=== PATIENT | male | born 1960 | race Caucasian/White ===

== ENCOUNTER 2024-05-12 18:36 | Emergency (ER) | payer SELFPAY ==
[2024-05-12 19:04] VITALS: BP 139/71; PULSE 79; RESP 20; TEMP 36.6; O2SAT 96
--- NOTE | 2024-05-13 02:42 | PC.NURSE ---
pt called for vitals and no answer.
--- NOTE | 2024-05-13 03:47 | PC.NURSE ---
2nd call no answer
== END 2024-05-13 04:23 | disposition left against medical advice (07) ==
LOC: ANHED 05-13 04:02
DX: S69.91XA Unspecified injury of right wrist, hand and finger(s), initial encounter (principal)
CPT/HCPCS: 99199

== ENCOUNTER 2024-07-18 13:53 | Emergency (ER) | payer OTHER, SELFPAY ==
--- NOTE | ~2024-07-18 | CT_ITS ---
EXAMINATION: CTA chest PE protocol DATE: 07/18/2024 17:48 CDT INDICATION: Cough and positive, elevated d-dimer, shortness of breath and productive cough TECHNIQUE: Computed tomographic angiography (CTA) of the chest was performed with 100 mL Omnipaque-35 0 intravenous contrast. The dose-length product was 717.78 mGy-cm. Maximum intensity projection 3D-re constructions of the aorta and other arteries were constructed by the technologist on a separate work station. COMPARISON: None. FINDINGS: No filling defects are identified within the main or proximal pulmonary arteries. 7.4 mm nodule within the left upper lobe (axial series, image 60). 5 mm nodule within the superior segment of the right lower lobe (axial series, image 63). No additional pulmonary nodules or pulmonary masses are identified. Reflux Reflux of contrast is identified into the hepatic veins, findings suggesting right heart failure. The main pulmonary arteries are not enlarged. Within the upper abdomen: Liver is enlarged measuring 20 cm in longitudinal dimension. Degenerative disease within the thoracic spine without acute fracture, lytic or blastic lesions ident ified. IMPRESSION: No pulmonary embolus. No aortic dissection. 7.4 mm nodule within the left upper lobe for which CT at 3-6 months is recommended as follow-up. Reviewed, dictated and finalized at location A. IMPRESSION: No pulmonary embolus. No aortic dissection. 7.4 mm nodule within the left upper lobe for which CT at 3-6 months is recommen ded as follow-up.
--- NOTE | ~2024-07-18 | XR_ITS ---
EXAMINATION: XR chest 2V DATE: 07/18/2024 14:13 INDICATION: Shortness of breath and cough TECHNIQUE: PA and lateral views of the chest were obtained. COMPARISON: None FINDINGS: The lungs are clear with no focal airspace opacities, pulmonary edema, pleural effusion or pneumothor ax. Heart size is normal with prominent bilateral pericardial fat pads. Mild to moderate thoracic spo ndylosis. IMPRESSION: 1. No acute cardiopulmonary disease. Reviewed, dictated and finalized at location A.
[2024-07-18 14:03] VITALS: BP 134/85; PULSE 77; RESP 18; TEMP 37.2; O2SAT 96
[2024-07-18 14:04] VITALS: RESP 18; O2SAT 96
[2024-07-18 14:06] VITALS: BP 134/85; PULSE 80; RESP 18; TEMP 36.8; O2SAT 96
--- NOTE | 2024-07-18 14:34 | ECG_ITS ---
Test Date: 2024-07-18 15:36:49 Measurements Intervals [place] Rate: 64 P: 30 MA: 136 QRS: 18 QRSD: 97 T: -5 QT: 388 QTc: 401 Interpretive Statements SINUS RHYTHM POSSIBLE RIGHT VENTRICULAR CONDUCTION DELAY [RSR (QR) IN V1/V2] NONSPECIFIC T-WAVE ABNORMALITY ABNORMAL ECG No previous ECG available for comparison Electronically Signed On 07-19-2024 10:13:52 CDT by Cameron Maldonado M.D.
--- NOTE | 2024-07-18 14:34 | ED.GENADULT ---
HPI - General Adult General Chief complaint: Unspecified Stated complaint: get my lungs checked Time Seen by Provider: 07/18/24 13:58 Source: patient Mode of arrival: ambulatory Limitations: no limitations History of Present Illness HPI narrative: This is a 63 year old male that presents to the ER for cold symptoms. Present over the last 5 days. Reports cough, congestion, rhinorrhea, sore throat. Reports some shortness of breath. Family members have COVID. Denies chest pain. Review of Systems Review of Systems: CONSTITUTIONAL: Denies fever CARDIOVASCULAR: Denies chest pain, or edema. RESPIRATORY: Reports cough and dyspnea. All systems reviewed & are unremarkable except as noted in HPI and below PMFSH Past Medical History Medical History (Updated 07/18/24 @ 18:52 by Lorrie Beavers PA-C) History of hyperlipidemia History of hypertension Social History Social History (Updated 07/18/24 @ 14:36 by Lorrie Beavers PA-C) Substance use: never Exam Narrative: GENERAL: Well-appearing, well-nourished, and in no acute distress. HEAD: Normocephalic, atraumatic. EYES: EOMI. ENT: Nares clear, no rhinorrhea or epistaxis. Mucous membranes moist. Oropharynx without tonsillar hypertrophy exudate or other lesions. Bilateral TMs pearly rain non-bulging NECK: Supple. No adenopathy or masses. CHEST: Clear to auscultation. No respiratory distress. No wheezes rales or rhonchi HEART: Regular rate and rhythm. No murmur heard. Normal peripheral pulses. EXTREMITIES: Normal range of motion. No edema. SKIN: Warm, dry, no rash. NEURO: No focal deficits. Alert and oriented x3. PSYCH: Normal mood and affect Course Course Emergency Course: patient updated on his workup and agrees with plan of care Vital Signs Vital signs: Vital Signs Temperature 99.0 F 07/18/24 14:03 Pulse Rate 77 07/18/24 14:03 Respiratory Rate 18 07/18/24 14:03 Blood Pressure 134/85 07/18/24 14:03 Pulse Oximetry 96 07/18/24 14:03 Temperature 98.2 F 07/18/24 14:06 Pulse Rate 82 07/18/24 17:15 Respiratory Rate 19 07/18/24 17:15 Blood Pressure 131/81 07/18/24 17:15 Pulse Oximetry 97 07/18/24 17:15 Oxygen Delivery Room Air 07/18/24 14:06 Medical Decision Making MDM Narrative Medical decision making narrative: Patient presents to the emergency department for cold symptoms present over the last couple of days. Reporting some shortness of breath. Lungs are clear on exam. Oxygen saturation is normal on room air. Patient is afebrile and nontoxic appearing. Cbc without leukocytosis. Metabolic panel without concerning findings. Patient is COVID positive. D-dimer elevated, CTA of the chest obtained. No PE. Does show a left upper lobe lung nodule. Patient updated on workup and agrees with plan of care. Instructed on further care viral infection. He is to follow-up with PCP. He was given warnings to return to the ER Vital Signs Vital Signs: Vital Signs Temperature 99.0 F 07/18/24 14:03 Pulse Rate 77 07/18/24 14:03 Respiratory Rate 18 07/18/24 14:03 Blood Pressure 134/85 07/18/24 14:03 Pulse Oximetry 96 07/18/24 14:03 Temperature 98.2 F 07/18/24 14:06 Pulse Rate 82 07/18/24 17:15 Respiratory Rate 19 07/18/24 17:15 Blood Pressure 131/81 07/18/24 17:15 Pulse Oximetry 97 07/18/24 17:15 Oxygen Delivery Room Air 07/18/24 14:06 Lab Data Lab results reviewed: Yes I reviewed the patient's lab results. 07/18/24 14:44 07/18/24 14:44 Labs: Lab Results 07/18/24 07/18/24 Range/Units 14:08 14:44 WBC 6.1 (4.5-10.0) K/mm3 RBC 4.80 (4.6-6.20) M/mm3 Hgb 14.4 (14.0-18.0) g/dL Hct 43.4 (42.0-52.0) % MCV 90.4 (80-100) fl MCH 30.0 (26-34) pg MCHC 33.2 (32-36) g/dl RDW 13.7 (11.5-14.5) % Plt Count 203 (150-375) k/mm3 MPV 8.8 (7.4-10.4) fl Immature Gran % (Auto) 0.3 (0-0.5) % Neut % (Auto) 51.6
[2024-07-18 14:50] LABS: Influenza A QL RT-PCR Negative (Negative); Influenza B QL RT-PCR Negative (Negative); RSV RNA, RT-PCR Negative (Negative); SARS-CoV-2 RNA PCR Positive (Negative)
[2024-07-18 14:50] LABS: Basophils Absolute Auto 0.1 K/mm3 (0.0-0.1); Basophils Percent Auto 0.8 % (0.2-1.2); Eosinophils Absolute Auto 0.4 K/mm3 (0-0.3); Eosinophils Percent Auto 7.2 % (0-4.4); Hematocrit 43.4 % (42.0-52.0); Hemoglobin 14.4 g/dL (14.0-18.0); Immature Granulocyte Absolute 0.02 K/mm3 (0.00-0.031); Immature Granulocyte Percent A 0.3 % (0-0.5); Lymphocytes Absolute Auto 1.62 K/mm3 (0.9-3.2); Lymphocytes Percent Auto 26.5 % (18.3-44.2); Mean Corpuscular HGB Conc 33.2 g/dl (32-36); Mean Corpuscular Volume 90.4 fl (80-100); Mean Platelet Volume 8.8 fl (7.4-10.4); Monocytes Absolute Auto 0.8 K/mm3 (0.1-0.6); Monocytes Percent Auto 13.6 % (2.6-8.5); Neutrophils Absolute Auto 3.2 K/mm3 (1.3-6.7); Neutrophils Percent Auto 51.6 % (45.5-73.1); Platelet Count Result 203 k/mm3 (150-375); Red Cell Distribution Width 13.7 % (11.5-14.5); White Blood Count 6.1 K/mm3 (4.5-10.0)
[2024-07-18 15:02] LABS: Anion Gap 10 mmol/L (4-12); Blood Urea Nitrogen 14 mg/dL (9-20); Calcium 9.2 mg/dL (8.4-10.2); Carbon Dioxide 25 mmol/L (22-30); Chloride 105 mmol/L (98-107); Estimated CRCL calculation 73 ml/min; Estimated Glomerular Filt Rate > 60; Glucose 87 mg/dL (65-110); Potassium 3.9 mmol/L (3.4-5.0); Sodium 140 mmol/L (137-145)
[2024-07-18 15:03] LABS: Prothrombin Time 13.4 Seconds (11.1-14.7)
[2024-07-18 15:04] LABS: Partial Thromboplastin Time 25.8 Seconds (22.3-36.8)
[2024-07-18 15:08] LABS: D Dimer 0.72 ug/mL (<0.48)
[2024-07-18 17:15] VITALS: BP 131/81; PULSE 82; RESP 19; O2SAT 97
== END 2024-07-18 19:06 | disposition home or self-care (01) ==
PROVIDERS: Emergency Provider Physician Assistant
DX: U07.1 COVID-19 (principal); R91.1 Solitary pulmonary nodule; I10 Essential (primary) hypertension; E78.5 Hyperlipidemia, unspecified; R94.31 Abnormal electrocardiogram [ECG] [EKG]
CPT/HCPCS: 36415; 71046; 71275; 80048; 85025; 85380; 85610; 85730; 87637; 93005; 99284; Q9967

== ENCOUNTER 2025-02-17 15:26 | Emergency (ER) | payer BC, SELFPAY ==
[2025-02-17] VITALS (8 sets, daily range): BP systolic 122–170; BP diastolic 72–80; PULSE 61–78; RESP 15–19; TEMP 36.5; O2SAT 95–100
--- NOTE | ~2025-02-17 | XR_ITS ---
XR chest 2V Ordering provider: Bossman Richards MD History: 64 years Male with . c/o dyspnea . Comparison: July 18, 2024 FINDINGS: MEDIASTINUM: The cardiac silhouette is not enlarged. LUNGS: No infiltrates, effusions or pneumothorax. OTHER: No free air under the diaphragm. Degenerative changes of the spine. IMPRESSION: No acute cardiopulmonary pathology. Reviewed, dictated and finalized at location A.
--- NOTE | ~2025-02-17 | CT_ITS ---
CTA chest PE abdomen pel Ordering provider: Sophia Mahan APRN History: . shortness of breath, abdominal pain . Comparison: July 18, 2024. Technique: CT angiogram chest was performed following timed intravenous injection of contrast. Thin s lice axial images and reformatted coronal images were obtained. Three dimensional reformatted images of the chest were also obtained using a [employer] workstation. Also, CT of the abdomen and pelvis was pe rformed with IV contrast. . Automated exposure control and iterative reconstruction technique were e mployed. The dose-length product was 1854.84 mGy-cm. 100 mL Omnipaque 350 was given IV. FINDINGS: CHEST: --PULMONARY ARTERIES: No pulmonary embolus. --VISUALIZED THORACIC INLET: Normal. --MEDIASTINUM: Aorta/coronary arteries: Mild atheromatous disease. Heart/other: The heart is not enlarged. Lymph nodes: No mediastinal or hilar adenopathy. Precarinal lymph node is seen measuring 1.2 cm. --LUNGS: 6 mm nodule is seen in the left upper lobe unchanged from previous examination. No pulmonary masses. No infiltrates or effusions. No pneumothorax. --MUSCULOSKELETAL: Bones: Age appropriate degenerative changes of the spine. Superficial soft tissues: The superficial soft tissues are normal. ABDOMEN/PELVIS: --MUSCULOSKELETAL: Superficial soft tissues: Fat containing umbilical hernia.Ss, The superficial soft tissues are normal . Bones: Anterolisthesis at the level of L5-S1 with an dialysis. Age appropriate degenerative changes o f the spine. Bilateral hip arthroplasty. Bilateral sacroiliacs. --UPPER ABDOMINAL ORGANS: Liver: Fat infiltration. Borderline hepatomegaly. Gallbladder: Normal. Spleen: Normal. Stomach/duodenum: Sliding hiatus hernia. Pancreas: Normal. Adrenals: Normal. Kidneys: Normal. --PELVIC ORGANS: The bladder is underfilled with thickened wall. Artifacts are seen in the area of th e bladder. --BOWEL AND MESENTERY: Colon: No evidence of diverticulitis.. Normal appendix. Small Bowel: Normal. No obstruction. Peritoneum/mesentery: No free air or free fluid. No mesenteric lymphadenopathy. --RETROPERITONEUM: Mild atheromatous disease of the abdominal aorta. No retroperitoneal lymphadenopa thy. IMPRESSION: CHEST: 1. No pulmonary embolism. 2. No acute cardiopulmonary pathology. 3. Nodule in the left upper lobe unchanged from previous examination. 6 months follow-up CT advised. ABDOMEN/PELVIS: 1. No evidence of appendicitis, diverticulitis or intestinal obstruction. 2. Fat infiltration of the liver. 3. Small sliding hiatus hernia. 4. Fat-containing anterior abdominal wall hernia. Reviewed, dictated and finalized at location A.
--- OUTSIDE RECORDS SUMMARY | 2025-02-17 15:27 | XMS_ITS | Clinical Summary ---
Author Organization [facility] Office Center Address [address] [place] [address] Care Team Providers Care Mobile Phlebotomist Name Role Phone Neno Knight MD Primary Care Provider + Allergies No known active allergies Medications ketorolac (TORADOL) 10 mg tablet Take 1 tablet (10 mg total) by mouth every 6 (six) hours as needed for pain 20 tablet 3 Active Additional Information Patient not taking.Reported on 12/02/2022 famotidine (PEPCID) 20 mg tabletIndicatio ns:Heartburn Take 1 tablet (20 mg total) by mouth 2 (two) times a day 30 tablet 3 Active Additional Information Patient not taking.Reported on 12/02/2022 amLODIPine (NORVASC) 10 mg tablet amlodipine 10 mg tablet 2 Active pravastatin (PRAVACHOL) 80 mg tablet pravastatin 80 mg tablet 8 Active aspirin 81 mg chewable tablet Take 81 mg by mouth daily Active cetirizine (ZyrTEC) 10 mg tablet cetirizine 10 mg tablet TAKE 1 TABLET BY MOUTH ONCE DAILY Active fluticasone propionate (FLONASE) 50 mcg/actuation nasal spray fluticasone propionate 50 mcg/actuation nasal spray,suspension USE 1 SPRAY(S) IN EACH NOSTRIL ONCE DAILY MAY INCREASE TO TWICE DAILY WHEN SYMPTOMS WORSEN 2 Active Active Problems Problem Noted Date Diagnosed Date Snoring 12/02/2022 Assessment & Plan (12/02/2022 2:56 PM OUTBOUND SALES REPRESENTATIVE): Due to the snoring and hypersomnia, I have recommended the patient complete an in-home nocturnal polysomnogram as required by his insurance. Procedure detailed in depth. Patient is agreeable Surgical History Surgery Date Site/Laterality Comments TOTAL HIP ARTHROPLASTY 06/27/2022 - 2022 Left TOTAL HIP ARTHROPLASTY 09/27/1999 - 09/26/2000 Right EYE SURGERY 09/27/2021 - 09/26/2022 Right TONSILLECTOMY/ADENOIDECTOMY 09/27/1969 - 09/26/1970 Social History Tobacco Use Types Packs/Day Years Used Date Smoking Tobacco: Every Day Cigarettes Smokeless Tobacco: Never Tobacco Cessation:Ready to Q uit: Not Asked; Counseling Given: Not Answered Personal Safety Answer Date Recorded Getting School Help Needed Not on file 11/26 Sex and Gender Information Value Date Recorded Sex Assigned at Not on file Legal Sex Male 5:33 PM OUTBOUND SALES REPRESENTATIVE Gender Identity Not on file Sexual Orientation Not on file Obstetrics History Last Filed Vital Signs Vital Sign Reading Time Taken Comments Blood Pressure 118/74 12/02/2022 2:26 PM OUTBOUND SALES REPRESENTATIVE Pulse 63 12/02/2022 2:26 PM OUTBOUND SALES REPRESENTATIVE Temperature 36.6 C (97.9 F) 10/06/2022 11:04 AM OUTBOUND SALES REPRESENTATIVE Respiratory Rate 18 12/02/2022 2:26 PM OUTBOUND SALES REPRESENTATIVE Oxygen Saturation 95% 12/02/2022 2:26 PM OUTBOUND SALES REPRESENTATIVE Inhaled Oxygen Concentration - - Weight 101.2 kg (223 lb) 12/02/2022 2:26 PM OUTBOUND SALES REPRESENTATIVE Height 182.9 cm (6') 12/02/2022 2:26 PM OUTBOUND SALES REPRESENTATIVE Body Mass Index 30.24 12/02/2022 2:26 PM OUTBOUND SALES REPRESENTATIVE Plan of Treatment Health Maintenance Due Date Last Done Comments Colon Cancer Screening-Colonoscopy 1960 Depression Screening 1960 Hepatitis C Screening 1960 Prostate Cancer Screening-PSA 1960 Hepatitis B Screening 1978 Regular Well Visit/Exam 18-64 1978 Pneumococcal vaccine <65 (1 of 2 - PCV) 1979 Zoster Vaccine (1 of 2) 2010 Covid-19 Vaccine (4 - season) 2024 08/03/2021, 01/17/2021, 12/24/2020 Influenza Vaccine (Season Ended) 2025 08/03/2021, 06/24/2020, 07/28/2017 DTaP/Tdap/Td Vaccine (3 - Td or Tdap) 07/02/202802/2018, 07/28/2017 Insurance [employer] OPEN ACCESS LOCAL PLUS Care Teams Mobile Phlebotomist Relationship Specialty Start Date End Date Neno Knight MD PCP - General Family Medicine 12/02/22
--- OUTSIDE RECORDS SUMMARY | 2025-02-17 15:27 | XMS_ITS | Patient Health Record ---
Author Organization [facility] Address [address] [place], [place] [id number] Care Team Providers Care Survey Compiler Name Role Phone Answer, Declined Unavailable Unavailable Allergies No Known Allergies Reason For Referral No Information Medications Medication SIG (Take, Route, Frequency, Duration) Notes Start Date End Date Status Alophen Active Plan Of Treatment No Information Insurance Providers Payer Name Payer Address Payer Phone Subscriber Number Group Number Insured Name Patient Relationship to Insured Coverage Start Date Coverage End Date [address] [place] [phone] [id number] LINDA COOPER Self - patient is the insured Medical (General) History Surgical History Surgery Date(Month/Year) hip replacement, bilateral 2001
--- OUTSIDE RECORDS SUMMARY | 2025-02-17 15:27 | XMS_ITS | Referral Summary ---
Author Organization [facility] Office Center Address [address] [place] [address] Care Team Providers Care Systems Test Engineer Name Role Phone Neno Knight MD Primary [...] 12/02/2022 Assessment & Plan (12/02/2022 2:56 PM CUPOLA OPERATOR): Due to the snoring and hypersomnia, I have recommended the patient complete an in-home nocturnal polysomnogram as required by his insurance. Procedure detailed in depth. Patient is agreeable Social History Tobacco Use Types Packs/Day Years Used Date Smoking Tobacco: Every Day Cigarettes Smokeless Tobacco: Never Tobacco Cessation:Ready to Q uit: Not Asked; Counseling Given: Not Answered Personal Safety Answer Date Recorded Getting School Help Needed Not on file 11/26 Sex and Gender Information Value Date Recorded Sex Assigned at Not on file Legal Sex Male 5:33 PM CUPOLA OPERATOR Gender Identity Not on file Sexual Orientation Not on file Last Filed Vital Signs Vital Sign Reading Time Taken Comments Blood Pressure 118/74 12/02/2022 2:26 PM CUPOLA OPERATOR Pulse 63 12/02/2022 2:26 PM CUPOLA OPERATOR Temperature 36.6 C (97.9 F) 10/06/2022 11:04 AM CUPOLA OPERATOR Respiratory Rate 18 12/02/2022 2:26 PM CUPOLA OPERATOR Oxygen Saturation 95% 12/02/2022 2:26 PM CUPOLA OPERATOR Inhaled Oxygen Concentration - - Weight 101.2 kg (223 lb) 12/02/2022 2:26 PM CUPOLA OPERATOR Height 182.9 cm (6') 12/02/2022 2:26 PM CUPOLA OPERATOR Body Mass Index 30.24 12/02/2022 2:26 PM CUPOLA OPERATOR Plan of Treatment Not on file Insurance [employer] OPEN ACCESS LOCAL PLUS Care Teams Systems Test Engineer Relationship Specialty Start Date End Date Neno Knight MD PCP - General Family Medicine 12/02/22
--- OUTSIDE RECORDS SUMMARY | 2025-02-17 15:27 | XMS_ITS | Clinical Summary ---
Author Organization [facility] Care Team Providers Care Application Support Analyst Name Role Phone Unavailable Primary Care Provider Unavailabl e Social History Tobacco Use Types Packs/Day Years Used Date Smoking Tobacco: Never Assessed Sex and Gender Information Value Date Recorded Sex Assigned at Not on file Legal Sex Male 11:07 AM CDT Gender Identity Not on file Sexual Orientation Not on file Plan of Treatment Health Maintenance Due Date Last Done Comments Hepatitis C Virus (HCV) Screening 1960 Colonoscopy 2005 Colorectal Cancer Screening 2005 Cologuard 2010 Immunochemical Fecal Occult Blood 2010 Pneumococcal Immunization (5 0+ years) (1 of 1 - PCV) 2010 Zoster Immunization (1 of 2) 2010 PSA Discussion 2015 Influenza Immunization (#1) 2024 09/2 04/2020, 07/28/2017 SARS-COV-2 Immunization ( season) 2024 01/17/2021, 12/24/2020 Respiratory Syncytial Virus (RSV) Immunization (Adult) (1 - 1-dose 75+ series) 2035 DTaP/Tdap/Td Immunization Discontinued 07/28/2017 TdaP Immunization Completed 07/28/2017 Hepatitis B Immunization Aged Out No longer eligible based on patient's age to complete this topic Meningococcal Immunization (ACWY) Aged Out No longer eligible based on patient's age to complete this topic Pneumococcal Immunization Combined Aged Out No longer eligible based on patient's age to complete this topic Rotavirus Immunization Aged Out No lo nger eligible based on patient's age to complete this topic
[2025-02-17 16:04] LABS: Basophils Percent Auto 0.3 % (0.2-1.2); Eosinophils Absolute Auto 0.2 K/mm3 (0-0.3); Hematocrit 44.6 % (42.0-52.0); Hemoglobin 14.3 g/dL (14.0-18.0); Immature Granulocyte Absolute 0.03 K/mm3 (0.00-0.031); Immature Granulocyte Percent A 0.3 % (0-0.5); Lymphocytes Absolute Auto 1.16 K/mm3 (0.9-3.2); Mean Corpuscular HGB Conc 32.1 g/dl (32-36); Mean Corpuscular Hemoglobin 28.8 pg (26-34); Mean Corpuscular Volume 89.7 fl (80-100); Mean Platelet Volume 8.9 fl (7.4-10.4); Monocytes Absolute Auto 0.4 K/mm3 (0.1-0.6); Monocytes Percent Auto 3.6 % (2.6-8.5); Neutrophils Absolute Auto 9.8 K/mm3 (1.3-6.7); Neutrophils Percent Auto 83.8 % (45.5-73.1); Platelet Count Result 242 k/mm3 (150-375); Red Blood Count 4.97 M/mm3 (4.6-6.20); Red Cell Distribution Width 14.5 % (11.5-14.5); White Blood Count 11.6 K/mm3 (4.5-10.0)
[2025-02-17 16:12] LABS: Add Urine Microscopic? YES; Appearance Urine Clear (Clear); Bacteria Urine None Seen /hpf; Bilirubin Urine Negative (Negative); Blood Urine 1+ (Negative); Color Urine Yellow (Yellow); Glucose Urine UA 2+ mg/dL (Negative); Ketones Urine Trace mg/dL (Negative); Leukocyte Esterase Ur Negative LEU/UL (Negative); Nitrate Urine Negative (Negative); Non Pathogenic Casts 0-2; Protein Urine Negative (Negative); Specific Grav Ur 1.024 (1.001-1.035); Squamous Epithelial Cell Urine None Seen /hpf (Few); WBC Urine 0-5 /hpf (0-3)
[2025-02-17 16:17] LABS: Alanine Aminotransferase 43 U/L (6-50); Albumin Level 4.5 g/dL (3.5-5.1); Alkaline Phosphatase 84 U/L (38-126); Anion Gap 11 mmol/L (4-12); Aspartate Amino Transferase 40 U/L (17-59); Bilirubin,Total 0.7 mg/dL (0.2-1.3); Blood Urea Nitrogen 16 mg/dL (9-20); Calcium 9.1 mg/dL (8.4-10.2); Carbon Dioxide 26 mmol/L (22-30); Chloride 103 mmol/L (98-107); Estimated CRCL calculation 76 ml/min; Estimated Glomerular Filt Rate > 60; Glucose 161 mg/dL (65-110); Lipase 50 U/L (23-300); Potassium 3.6 mmol/L (3.4-5.0); Sodium 140 mmol/L (137-145)
--- NOTE | 2025-02-17 16:18 | ED.ABDPAIN ---
HPI - Abdominal Pain General Chief Complaint: Abdominal Pain Stated Complaint: ABD PAIN Time Seen by Provider: 02/17/25 16:03 History of Present Illness HPI narrative: Patient is a 64-year-old female who presents to the ER with complaints shortness of breath, difficulty breathing, abdominal pain, abdominal distension, lower extremity swelling, intermittent confusion, bumps in his left hip, and sore throat. He reports his symptoms started a couple days ago. Patient endorses a history of bilateral hip surgery, hypertension, hyperlipidemia, and COPD. He denies any recent fevers, chest pain, or back pain. Patient reports he does smoke cigarettes currently. He reports he has a primary care provider. Patient had labs drawn approximately 3 months ago and some more ?abnormal but my doctor never called him back for a follow-up appointment. Related Data Allergies Allergy/AdvReac Type Severity Reaction Status Date / Time No Known Allergies Allergy Verified 02/17/25 16:10 [facility] Past Medical History Medical History (Updated 02/17/25 @ 19:14 by Sophia Mahan, [place]) History of hyperlipidemia History of hypertension Social History Social History (Updated 07/18/24 @ 14:36 by Lorrie Beavers PA-C) Substance use: never Course Vital Signs Vital signs: Vital Signs Temperature 36.5 C 02/17/25 15:39 Pulse Rate 78 02/17/25 15:39 Respiratory Rate 16 02/17/25 15:39 Blood Pressure 170/72 H 02/17/25 15:39 Pulse Oximetry 97 02/17/25 15:39 Temperature 36.5 C 02/17/25 15:39 Pulse Rate 75 02/17/25 18:36 Respiratory Rate 18 02/17/25 18:36 Blood Pressure 130/75 02/17/25 18:36 Pulse Oximetry 100 02/17/25 18:36 MDM - Abdominal Pain MDM Narrative Medical decision making narrative: Patient is a 64-year-old female who presents to the ER with complaints shortness of breath, difficulty breathing, abdominal pain, abdominal distension, lower extremity swelling, intermittent confusion, bumps in his left hip, and sore throat. He reports his symptoms started a couple days ago. Patient endorses a history of bilateral hip surgery, hypertension, hyperlipidemia, and COPD. He denies any recent fevers, chest pain, or back pain. Patient reports he does smoke cigarettes currently. He reports he has a primary care provider. Patient had labs drawn approximately 3 months ago and some more ?abnormal but my doctor never called him back for a follow-up appointment. Labs Ordered: CBC, CMP, troponin, lipase, magnesium, UA Imaging Ordered: CTA chest PE abdomen pelvis, chest x-ray Medications Ordered: Solu-Medrol 125 IV, DuoNeb Results: CT scan indicates CHEST: 1. No pulmonary embolism. 2. No acute cardiopulmonary pathology. 3. Nodule in the left upper lobe unchanged from previous examination. 6 months follow-up CT advised. ABDOMEN/PELVIS: 1. No evidence of appendicitis, diverticulitis or intestinal obstruction. 2. Fat infiltration of the liver. 3. Small sliding hiatus hernia. 4. Fat-containing anterior abdominal wall hernia. Diagnosis: COPD exacerbation, abdominal wall hernia, hematuria Risks: HEART score: low risk HEART Score for Major Cardiac Events from [place] on 02/17/2025 All calculations should be rechecked by clinician prior to use RESULT SUMMARY: 3 points Low Score (0-3 points) Risk of MACE of 0.9-1.7%. INPUTS: History ?> 0 = Slightly suspicious EKG ?> 1 = Non-specific repolarization disturbance Age ?> 1 = 45-64 Risk factors ?> 1 = 1-2 risk factors Initial troponin ?> 0 = <=Normal limit Consults: urology (outpatient) for hematuria follow-up, general surgery (outpatient) for hernia folow-up Patient Education/Shared MDM: Results of lab work and imaging shared with patient. He endorses improvement of symptoms following nebulizer administration. Patient strongly advised to follow-up with his PCP as soon as possible, along with other specialty care. He will be discharged home with a prescription for inhaler, Medrol [place], and Promethazine DM. Strict return precautions provided. Patient verbalized understanding and is in agreement with plan. Vital signs stable at time of discharge. All questions answered. Differential Diagnosis Differential diagnosis: Likely abdominal pain, calculus of kidney, gastroenteritis, small bowel obstruction and other (pulmonary embolism) Lab Data Attestation: I reviewed the patient's lab results. 02/17/25 15:53 02/17/25 15:53 Labs: Lab Results 02/17/25 02/17/25 Range/Units 15:52 15:53 WBC 11.6 H (4.5-10.0) K/mm3 RBC 4.97 (4.6-6.20) M/mm3 Hgb 14.3 (14.0-18.0) g/dL Hct 44.6 (42.0-52.0) % MCV 89.7 (80-100) fl MCH 28.8 (26-34) pg MCHC 32.1 (32-36) g/dl RDW 14.5 (11.5-14.5) % Plt Count 242 (150-375) k/mm3 MPV 8.9 (7.4-10.4) fl Immature Gran % (Auto) 0.3 (0-0.5) % Neut % (Auto) 83.8 H (45.5-73.1) % Lymph % (Auto) 10.0 L (18.3-44.2) % Glenn % (Auto) 3.6 (2.6-8.5) % Eos % (Auto) 2.0 (0-4.4) % Baso % (Auto) 0.3 (0.2-1.2) % Lymph # (Auto) 1.16 (0.9-3.2) K/mm3 Glenn # (Auto) 0.4 (0.1-0.6) K/mm3 Eos # (Auto) 0.2 (0-0.3) K/mm3 Baso # (Auto) 0.0 (0.0-0.1) K/mm3 Abs Immat Gran (auto) 0.03 (0.00-0.031) K/mm3 Absolute Neuts (auto) 9.8 H (1.3-6.7) K/mm3 Absolute Nucleated RBC 0.000 (0.0-0.012) K/mm3 Nucleated RBC % 0.0 (0.0-0.2) % Sodium 140 (137-145) mmol/L Potassium 3.6 (3.4-5.0) mmol/L Chloride 103 (98-107) mmol/L Carbon Dioxide 26 (22-30) mmol/L Anion Gap 11 (4-12) mmol/L BUN 16 (9-20) mg/dL Creatinine 1.07 (0.7-1.3) mg/dL Estim Creat Clear Calc 76 ml/min Estimated GFR > 60 (59 - ) Glucose 161 H (65-110) mg/dL Calcium 9.1 (8.4-10.2) mg/dL Magnesium 2.0 (1.6-2.3) mg/dL Total Bilirubin 0.7 (0.2-1.3) mg/dL AST 40 (17-59) U/L ALT 43 (6-50) U/L Alkaline Phosphatase 84 (38-126) U/L Troponin I < 0.012 (0.000-0.034) ng/mL Total Protein 7.0 (6.3-8.2) g/dL Albumin 4.5 (3.5-5.1) g/dL Lipase 50 (23-300) U/L Urine Color Yellow (Yellow) Urine Appearance Clear (Clear) Urine pH 6.0 (5.0-9.0) Ur Specific [place] 1.024 (1.001-1.035) Urine Protein Negative (Negative) mg/dL Urine Glucose (UA) 2+ H (Negative) mg/dL Urine Ketones Trace H (Negative) mg/dL Ur Blood (Man) 1+ H (Negative) Urine Nitrate Negative (Negative) Urine Bilirubin Negative (Negative) Urine Urobilinogen 1.0 (<2.0) mg/dL Leukocyte Esterase Rfl Negative (Negative) EULALIA/UL Urine RBC 6-10 H (0-2) /hpf Urine WBC 0-5 (0-3) /hpf Ur Squamous Epith Cells None seen (Few) /hpf Urine Bacteria None seen /hpf Urine Casts 0-2 Imaging Data Attestation: I personally reviewed and interpreted this imaging study as follows: Radiologist's impression: ITS Impressions Chest X-Ray 02/17/25 16:38 IMPRESSION: No acute cardiopulmonary pathology. Chest/Abdomen/Pelvis CTA 02/17/25 16:39 IMPRESSION: CHEST: 1. No pulmonary embolism. 2. No acute cardiopulmonary pathology. 3. Nodule in the left upper lobe unchanged from previous examination. 6 months follow-up CT advised. ABDOMEN/PELVIS: 1. No evidence of appendicitis, diverticulitis or intestinal obstruction. 2. Fat infiltration of the liver. 3. Small sliding hiatus hernia. 4. Fat-containing anterior abdominal wall hernia. Discharge Plan Discharge Clinical Impression: COPD with acute exacerbation, Bilateral wheezing, Hernia of abdominal wall, Hematuria, Hepatomegaly Patient Disposition: Home Condition: Stable Instructions: Antibiotic Form, Hiatal Hernia (ED), Umbilical Hernia (ED), Ventral Hernia (ED) Additional Instructions: Please return to the ER with any worsening symptoms. Follow-up with primary care provider as soon as possible. Take all regularly scheduled medications. You may your up with Urology regarding the blood in your urine. You may also follow-up with General surgery regarding your hernia. Take all medications as directed. Patient Language: Gibralt[place] Prescriptions: New albuterol sulfate [Ventolin HFA] 90 mcg/actuation HFA aerosol inhaler 1 inh inhalation QID PRN (Reason: shortness of breath or wheezing) Qty: 8.5 0RF methylprednisolone [Medrol ([place])] 4 mg tablets,dose pack See Rx Instructions .ROUTE .COMPLEX Qty: 21 0RF Rx Instructions: for 6 days promethazine-DM 6.25-15 mg/5 mL syrup 5 ml PO Q4-6H PRN (Reason: cough) Qty: 473 0RF Follow-up/Referrals: Lorenzo Holloway MD [Physician] - (urology) UNKNOWN,DOCTOR [Non-Staff] - Sunny Perez DO [Physician] - (general surgery) Time of Disposition: 19:13
--- OUTSIDE RECORDS SUMMARY | 2025-02-17 16:20 | XMS_ITS | Clinical Summary ---
Author Organization [facility] Care Team Providers Care Cinder Crusher Operator Name Role Phone Unavailable Primary Care Provider [...]
--- OUTSIDE RECORDS SUMMARY | 2025-02-17 16:20 | XMS_ITS | Referral Summary ---
Author Organization [facility] Address [address] [place] [address] Care Team Providers Care Talent Management Manager Name Role Phone Neno Knight MD Primary [...] 12/02/2022 Assessment & Plan (12/02/2022 2:56 PM CHILD CENTER ASSISTANT): Due to the snoring and hypersomnia, I [...] on file Legal Sex Male 5:33 PM CHILD CENTER ASSISTANT Gender Identity Not on file Sexual Orientation Not on file Last Filed Vital Signs Vital Sign Reading Time Taken Comments Blood Pressure 118/74 12/02/2022 2:26 PM CHILD CENTER ASSISTANT Pulse 63 12/02/2022 2:26 PM CHILD CENTER ASSISTANT Temperature 36.6 C (97.9 F) 10/06/2022 11:04 AM CHILD CENTER ASSISTANT Respiratory Rate 18 12/02/2022 2:26 PM CHILD CENTER ASSISTANT Oxygen Saturation 95% 12/02/2022 2:26 PM CHILD CENTER ASSISTANT Inhaled Oxygen Concentration - - Weight 101.2 kg (223 lb) 12/02/2022 2:26 PM CHILD CENTER ASSISTANT Height 182.9 cm (6') 12/02/2022 2:26 PM CHILD CENTER ASSISTANT Body Mass Index 30.24 12/02/2022 2:26 PM CHILD CENTER ASSISTANT Plan of Treatment Not on file Insurance [employer] OPEN ACCESS LOCAL PLUS Care Teams Talent Management Manager Relationship Specialty Start Date End Date Neno Knight MD PCP - General Family Medicine 12/02/22
--- OUTSIDE RECORDS SUMMARY | 2025-02-17 16:20 | XMS_ITS | Clinical Summary ---
Author Organization [facility] at the [facility] Address [address] [place] [address] Care Team Providers Care Gas Station Service Attendant Name Role Phone Neno Knight MD Primary [...] 12/02/2022 Assessment & Plan (12/02/2022 2:56 PM CRANKSHAFT GRINDER): Due to the snoring and hypersomnia, I [...] on file Legal Sex Male 5:33 PM CRANKSHAFT GRINDER Gender Identity Not on file Sexual Orientation Not on file Obstetrics History Last Filed Vital Signs Vital Sign Reading Time Taken Comments Blood Pressure 118/74 12/02/2022 2:26 PM CRANKSHAFT GRINDER Pulse 63 12/02/2022 2:26 PM CRANKSHAFT GRINDER Temperature 36.6 C (97.9 F) 10/06/2022 11:04 AM CRANKSHAFT GRINDER Respiratory Rate 18 12/02/2022 2:26 PM CRANKSHAFT GRINDER Oxygen Saturation 95% 12/02/2022 2:26 PM CRANKSHAFT GRINDER Inhaled Oxygen Concentration - - Weight 101.2 kg (223 lb) 12/02/2022 2:26 PM CRANKSHAFT GRINDER Height 182.9 cm (6') 12/02/2022 2:26 PM CRANKSHAFT GRINDER Body Mass Index 30.24 12/02/2022 2:26 PM CRANKSHAFT GRINDER Plan of Treatment Health Maintenance Due Date [...] [employer] OPEN ACCESS LOCAL PLUS Care Teams Gas Station Service Attendant Relationship Specialty Start Date End Date Neno Knight MD PCP - General Family Medicine 12/02/22
--- NOTE | 2025-02-17 17:27 | ECG_ITS ---
Test Date: 2025-02-17 17:43:42 Measurements Intervals [place] Rate: 63 P: 29 CA: 151 QRS: -4 QRSD: 96 T: -33 QT: 391 QTc: 402 Interpretive Statements SINUS RHYTHM NONSPECIFIC T-WAVE ABNORMALITY Compared to ECG 07/18/2024 15:36:49 No significant changes Electronically Signed On 02-18-2025 10:07:00 CDT by Isaac Arzola M.D.
[2025-02-17] MEDS: methylPREDNISolone SOD SUCC 125 MG VIAL IV PUSH (17:47)
[2025-02-17] MEDS: IPRATROPIUM 0.5 MG/ALBUTEROL SULFATE 2.5 MG AMPUL.NEB 3 ML INHALATION ×3 (17:48→18:07)
[2025-02-17 18:02] LABS: Troponin I < 0.012 ng/mL (0.000-0.034)
== END 2025-02-17 19:32 | disposition home or self-care (01) ==
PROVIDERS: Emergency Medicine; Emergency Provider Registered Nurse
DX: J44.1 Chronic obstructive pulmonary disease with (acute) exacerbation (principal); R31.9 Hematuria, unspecified; R16.0 Hepatomegaly, not elsewhere classified; I10 Essential (primary) hypertension; E78.5 Hyperlipidemia, unspecified
CPT/HCPCS: 36415; 71046; 71275; 74177; 80053; 81001; 83690; 83735; 84484; 85025; 93005; 94640; 96374; 99284; J2919; Q9967